=== PATIENT | female | born 1990 | race Caucasian/White ===

== ENCOUNTER 2024-06-13 00:35 | Emergency (ER) | payer MEDICAID ==
[2024-06-13] MEDS ORDERED: Sodium Chloride 0.9% 10 ML Syringe FLUSH PRN ×2 (00:58→03:22)
[2024-06-13] MEDS: Sodium Chloride 0.9% 1,000 ML IV SCH ×3 (01:50→04:37)
[2024-06-13 02:06] LABS: A/G RATIO 0.6; ALANINE AMINOTRANSFERASE,ALT 72 U/L (12-36); ALBUMIN 2.9 g/dL (3.5-5.2); ALKALINE PHOSPHATASE 153 IU/L (56-112); ASPARTATE AMNIOTRANSFERASE,AST 85 IU/L (5-25); BILIRUBIN TOTAL 1.2 mg/dL (0.1-1.3); BLOOD UREA NITROGEN,BUN 31 mg/dL (7-18); BUN/CREATININE RATIO 14.8 (9-20); CALCIUM 9.1 mg/dL (8.6-10.2); CARBON DIOXIDE,CO2 24 mmol/L (21-32); CHLORIDE,CL 93 mmol/L (100-110); ESTIMATED GFR 32 mL/min (>60); GLUCOSE RANDOM 102 mg/dL (80-116); POTASSIUM,K 3.3 mmol/L (3.5-5.3); PROTEIN TOTAL,TP 7.6 g/dL (6.0-8.0); SODIUM,NA 129 mmol/L (135-145)
[2024-06-13 02:10] LABS: CREATININE 2.1 mg/dL (0.55-1.02)
[2024-06-13 02:46] LABS: LACTIC ACID 2.1 mmol/L (0.4-2.0)
[2024-06-13 03:03] LABS: HEMATOCRIT 35.7 % (34.2-48.2); HEMOGLOBIN 12.1 g/dL (11.4-15.5); MEAN CORPUSCULAR HEMOGLOBIN 28.3 pg (23.9-33.9); MEAN CORPUSCULAR HGB CONC 33.8 g/dL (31.9-34.8); MEAN CORPUSCULAR VOLUME 83.5 fL (76.7-100.5); MEAN PLATELET VOLUME 9.3 fL (7.1-12.4); RED BLOOD CELL COUNT 4.27 x10(6)uL (3.60-5.20); RED CELL DISTRIBUTION WIDTH 14.4 % (12.3-16.5); WHITE BLOOD CELL COUNT,WBC 9.9 x10-3/uL (3.0-10.3)
[2024-06-13 03:05] LABS: PLATELET COUNT,PLT 27 x10(3)uL (151-488)
[2024-06-13 03:11] LABS: BAND PERCENT MAN 4 % (0-6); LYMPHOCYTES PERCENT MAN 9 % (13-37); MONOCYTES PERCENT MAN 10 % (4-12); SEG NEUTROPHILS PERCENT MAN 77 % (46-82)
[2024-06-13] MEDS: cefTRIAXone 1 GM in Sodium Chloride 0.9% 50 ML IV ONE (03:56)
[2024-06-13] MEDS: VANCOmycin 1 GM/200 ML 1 GM in Premix Bag 1 BAG IV ONE ×2 (03:57→05:17)
[2024-06-13] MEDS: Rifampin 150 MG Cap PO SCH (05:25)
[2024-06-13] MEDS: Azithromycin 500 MG in Sodium Chloride 0.9% 250 ML IV ONE (06:25)
[2024-06-13 07:08] LABS: BILIRUBIN,URINE NEGATIVE (NEGATIVE); GLUCOSE,URINE NORMAL (NORMAL); KETONES,URINE NEGATIVE (NEGATIVE); LEUKOCYTE ESTERASE,URINE NEGATIVE (NEGATIVE); NITRITE,URINE NEGATIVE (NEGATIVE); OCCULT BLOOD,URINE LARGE (NEGATIVE); PROTEIN,URINE 30 mg/dL (NEGATIVE); UROBILINOGEN,URINE NORMAL (NEGATIVE)
[2024-06-13 07:10] LABS: AMORPHOUS SEDIMENT,URINE FEW; APPEARANCE,URINE SLIGHTLY CLOUDY (CLEAR); BACTERIA,URINE FEW (NS); COLOR,URINE YELLOW (YELLOW); SQUAMOUS EPITHELIAL CELLS,UR OCCASIONAL (NS,R,O); WBC,URINE 0-5 (0-5)
[2024-06-13] MEDS: Acetaminophen 325 MG Tab PO ONE (07:25)
[2024-06-13] MEDS: Ondansetron 4 MG Tab.DIS PO ONE (07:25)
[2024-06-13 07:52] LABS: HEMATOCRIT 32.2 % (34.2-48.2); HEMOGLOBIN 11.1 g/dL (11.4-15.5); MEAN CORPUSCULAR HEMOGLOBIN 28.4 pg (23.9-33.9); MEAN CORPUSCULAR HGB CONC 34.3 g/dL (31.9-34.8); MEAN CORPUSCULAR VOLUME 82.7 fL (76.7-100.5); MEAN PLATELET VOLUME 9.5 fL (7.1-12.4); RED CELL DISTRIBUTION WIDTH 14.4 % (12.3-16.5); WHITE BLOOD CELL COUNT,WBC 5.8 x10-3/uL (3.0-10.3)
[2024-06-13 07:55] LABS: BLOOD UREA NITROGEN,BUN 26 mg/dL (7-18); CARBON DIOXIDE,CO2 22 mmol/L (21-32); CHLORIDE,CL 97 mmol/L (100-110); CREATININE 1.3 mg/dL (0.55-1.02); ESTIMATED GFR 56 mL/min (>60); GLUCOSE RANDOM 116 mg/dL (80-116); POTASSIUM,K 2.9 mmol/L (3.5-5.3); SODIUM,NA 130 mmol/L (135-145)
[2024-06-13 08:01] LABS: PLATELET COUNT,PLT 22 x10(3)uL (151-488)
[2024-06-13 08:07] LABS: A/G RATIO 0.6; ALANINE AMINOTRANSFERASE,ALT 60 U/L (12-36); ALBUMIN 2.2 g/dL (3.5-5.2); ALKALINE PHOSPHATASE 138 IU/L (56-112); ASPARTATE AMNIOTRANSFERASE,AST 83 IU/L (5-25); BILIRUBIN TOTAL 1.4 mg/dL (0.1-1.3); PROTEIN TOTAL,TP 5.8 g/dL (6.0-8.0)
[2024-06-13 08:09] LABS: BAND PERCENT MAN 4 % (0-6); LYMPHOCYTES PERCENT MAN 6 % (13-37); MONOCYTES PERCENT MAN 7 % (4-12); SEG NEUTROPHILS PERCENT MAN 83 % (46-82); TOXIC GRANULATION FEW (NOT SEEN)
[2024-06-13] MEDS: Potassium Chloride 20 MEQ in Premix Bag 1 BAG IV ONE (08:23)
[2024-06-13] MEDS ORDERED: Rifampin 150 MG Cap PO SCH (09:00)
[2024-06-13] MEDS: Lactated Ringers 1,000 ML IV ONE (09:09)
[2024-06-13 10:22] LABS: AMPHETAMINES SCREEN, URINE POSITIVE (NEGATIVE); METHAMPHETAMINE SCREEN, URINE POSITIVE (NEGATIVE); THC SCREEN,URINE NEGATIVE (NEGATIVE)
[2024-06-13 10:23] LABS: BARBITURATE SCREEN,URINE NEGATIVE (NEGATIVE); BENZODIAZEPINES SCREEN,URINE NEGATIVE (NEGATIVE); BUPRENORPHINE SCREEN,URINE NEGATIVE (NEGATIVE); METHADONE SCREEN, URINE POSITIVE (NEGATIVE); OXYCODONE SCREEN,URINE NEGATIVE (NEGATIVE)
== END 2024-06-13 09:13 | disposition other institution (70) ==
LOC: FB.ED 00:35
DX: A41.9 Sepsis, unspecified organism (principal); D69.6 Thrombocytopenia, unspecified; B19.20 Unspecified viral hepatitis C without hepatic coma; Z91.013 Allergy to seafood
CPT/HCPCS: 36415; 71045; 73030; 80053; 80307; 81001; 83605; 84702; 85025; 86140; 87040; 87077; 87086; 87186; 87635; 93005; 93010; 96361; 96365; 96366; 96367; 96375; 99285; A9270; J0456; J0696; J3372; J3480; J3490; J7030; J7050; J7120; Q0162; U0002